=== PATIENT | female | born 1945 | race Caucasian/White ===

== ENCOUNTER 2016-09-21 09:59 | Day surgery (SDC) | payer OTHER ==
[2016-09-21 10:24] VITALS: BMI 30.5
[2016-09-21 11:28] VITALS: TEMP 97.4
[2016-09-21 12:42] LABS: BASOPHIL 0.5 % (0-2.0); EOSINOPHIL 4.7 % (0-4.5); MCH 31.5 pg (25.7-33.7); MCHC 33.3 g/dl (32.0-36.0); MEAN CELL VOLUME 94.8 fl (80-96); MEAN PLT VOLUME 9.7 fl (7.5-11.1); NEUTROPHILS 63.4 % (42.8-82.8); PLATELET COUNT 205 K/MM3 (134-434); RDW 14.6 % (11.6-15.6); WHITE BLOOD COUNT 5.6 K/mm3 (4.0-10.0)
[2016-09-21 13:16] VITALS: BP 153/56; PULSE 46
[2016-09-21 13:44] LABS: ALBUMIN 4.1 g/dl (3.4-5.0); ANION GAP 10 (8-16); BILIRUBIN,TOTAL 0.6 mg/dL (0.2-1.0); C-REACTIVE PROTEIN < 0.3 MG/DL (0.00-0.3); CALCIUM 9.4 mg/dL (8.5-10.1); CHOLESTEROL 161 mg/dL (50-200); CO2 28 mmol/L (21-32); GLUCOSE,RANDOM 92 mg/dL (74-106); SGOT/AST 22 U/L (15-37); SGPT/ALT 38 U/L (12-78); TOT PROT 6.7 g/dl (6.4-8.2)
[2016-09-21 13:45] LABS: ALK PHOS 89 U/L (45-117); COCKROFT - GAULT 88.145; CREATININE 0.7 mg/dL (0.55-1.02)
[2016-09-21 14:06] LABS: LDL CHOLESTEROL (ONLY SJRH) 77 mg/dL (5-100)
--- NOTE | 2016-09-24 13:24 | PATH ---
Surgical Pathology Report Patient Name: PAIGE MAJANO [facility]. Rec. #: [id number] /Age/Gender: 1945 (Age: 71) / F Account: [id number] Location: U-ENDOSCOPY Taken: 09/21/2016 Received: 09/21/2016 Reported: 09/24/2016 Physicians: Cecille Gordon M.D. Specimen(s) Received A: BX RECTAL POLYPS B: BX CECAL POLYP C: BX SUBMUCOSAL CECAL MASS D: BX RIGHT COLON POLYPS E: BX DESCENDING COLON POLYPS Clinical History Altered bowel habits, colon cancer screening, polyp surveillance, abdominal pain Colon polyps Final Diagnosis A. RECTUM, POLYPS, BIOPSY: HYPERPLASTIC POLYPS. B. COLON, CECUM, POLYP, BIOPSY: POLYPOID FRAGMENTS OF COLONIC MUCOSA WITH PROMINENT REACTIVE LYMPHOID AGGREGATES. C. COLON, CECUM, SUBMUCOSAL MASS, BIOPSY: COLONIC MUCOSA WITH FOCAL CRYPT REGENERATIVE CHANGES AND FOCAL SUBMUCOSAL REACTIVE LYMPHOID AGGREGATE. NO OTHER SUBMUCOSAL TISSUE PRESENT FOR EVALUATION. Comment: Endoscopic impression of a submucosal cecal mass is noted. Only a small fragment of submucosal tissue with reactive lymphoid aggregate is seen in this biopsy material. No other submucosal tissue is present for evaluation. Endoscopic correlations are suggested. D. COLON, RIGHT, POLYPS, BIOPSY: CONSISTENT WITH INFLAMMATORY/POSTINFLAMMATORY POLYPS E. COLON, DESCENDING, POLYP, BIOPSY: FRAGMENTS OF HYPERPLASTIC POLYP. ADDITIONAL POLYPOID FRAGMENTS OF COLONIC MUCOSA WITH MELANOSIS COLI. Electronically Signed Ulises Rinaldi M.D. Gross Description A. Received in formalin, labeled "biopsy rectal polyps" are 4 sher, irregular portions of soft tissue ranging from 0.2-0.9 cm in greatest dimension. The specimens are submitted in toto in one cassette. B. Received in formalin, labeled "biopsy cecal polyp" are 3 sher, irregular portions of soft tissue ranging from 0.2-0.4 cm in greatest dimension. The specimens are submitted in toto in one cassette. C. Received in formalin, labeled "biopsy submucosal cecal mass" are 2 sher, irregular portions of soft tissue averaging 0.1 cm in greatest dimension. The specimens are submitted in toto in one cassette. D. Received in formalin, labeled "biopsy right colon polyps" are 2 sher, irregular portions of soft tissue measuring 0.5 and 0.6 cm in greatest dimension. The specimens are submitted in toto in one cassette. E. Received in formalin, labeled "biopsy descending colon polyp" are 5 sher, irregular portions of soft tissue ranging from 0.1-0.3 cm in greatest dimension. The specimens are submitted in toto in one cassette. 09/21/201609/21/2016
[2016-09-27 10:36] LABS: PANCREATIC POLYPEPTIDE 175.8 pg/mL (0.0-418.0)
== END 2016-09-21 13:16 | disposition home or self-care (01) ==
LOC: JASU-ENDO 09:59
PROVIDERS: ATTEND Internal Medicine Gastroenterology
PROC: 0DBH8ZX Excision of Cecum, Via Natural or Artificial Opening Endoscopic, Diagnostic (ICD-10-PCS; 2016-09-21)
PROC: 0DBM8ZX Excision of Descending Colon, Via Natural or Artificial Opening Endoscopic, Diagnostic (ICD-10-PCS; 2016-09-21)
PROC: 0DBP8ZX Excision of Rectum, Via Natural or Artificial Opening Endoscopic, Diagnostic (ICD-10-PCS; 2016-09-21)
PROC: 0DBK8ZX Excision of Ascending Colon, Via Natural or Artificial Opening Endoscopic, Diagnostic (ICD-10-PCS; principal; 2016-09-21 10:00)
DX: K62.1 Rectal polyp (principal); D12.0 Benign neoplasm of cecum; D12.4 Benign neoplasm of descending colon; D12.2 Benign neoplasm of ascending colon; K64.8 Other hemorrhoids; K63.89 Other specified diseases of intestine
CPT/HCPCS: 36415; 80053; 80061; 82378; 82941; 83519; 83721; 85025; 86140; 86304; 86316; 88305-TC